=== PATIENT | female | born 1945 | race Caucasian/White ===

== ENCOUNTER 2016-03-26 12:43 | Emergency (ER) | payer SELFPAY ==
[~2016-03-26] VITALS: Ht 157.5 cm; Wt 86.2 kg
[2016-03-26] MEDS ORDERED: IBUPROFEN 600 MG TABLET PO ONE ×2 (14:30→14:48)
[2016-03-26] MEDS ORDERED: HYDROCODONE/APAP 5/325MG 1 EACH TABLET PO ONE (14:30)
[2016-03-26] MEDS ORDERED: HYDROCODONE/APAP 5/325MG 1 EACH TABLET ONE (14:48)
[2016-03-26 14:56] VITALS: BP 172/112
== END 2016-03-26 14:59 | disposition home or self-care (01) ==
LOC: ER 12:53
DX: S42.201A Unspecified fracture of upper end of right humerus, initial encounter for closed fracture (principal); I10 Essential (primary) hypertension; E78.5 Hyperlipidemia, unspecified; F12.10 Cannabis abuse, uncomplicated; W01.198A Fall on same level from slipping, tripping and stumbling with subsequent striking against other object, initial encounter; Y93.89 Activity, other specified; Y92.89 Other specified places as the place of occurrence of the external cause; Y99.9 Unspecified external cause status
CPT/HCPCS: 73030-TC; A4606; Z7610